=== PATIENT | male | born 1960 | race Caucasian/White ===

== ENCOUNTER 2019-11-29 06:32 | Day surgery (SDC) | payer MEDICAID ==
[~2019-11-29] VITALS: Ht 172.7 cm; Wt 67.1 kg
[2019-11-29] MEDS ORDERED: BUPIVACAINE HCL/PF 0.5% (5MG/ML) 10ML ONE (08:59)
[2019-11-29] MEDS ORDERED: BACITRACIN 50,000 UNITS/VIAL ONE (08:59)
[2019-11-29] MEDS ORDERED: LIDOCAINE HCL 1% 20ML VIAL (Pyxis) INJ ONE (08:59)
[2019-11-29] MEDS: LACTATED RINGERS 1,000 ML IV SCH ×3 (09:50→09:58)
[2019-11-29] MEDS ORDERED: MIRT45TA59 PO (10:19)
[2019-11-29] MEDS ORDERED: GABA300C PO ×2 (10:19)
[2019-11-29] MEDS ORDERED: DIPH50CA38 PO (10:19)
[2019-11-29] MEDS ORDERED: BACL-141 PO (10:19)
[2019-11-29] MEDS ORDERED: NAP5EC PO (10:21)
[2019-11-29] MEDS ORDERED: SKIN ADHESIVE 0.7 GM EA TOP ONE (11:23)
[2019-11-29] MEDS ORDERED: FENTANYL CITRATE/PF 50MCG/ML 2ML VIAL ONE (11:25)
[2019-11-29] MEDS ORDERED: PROPOFOL 200MG/20ML VIAL IV ONE (11:25)
[2019-11-29] MEDS ORDERED: MIDAZOLAM HCL 2 MG/2 ML VIAL ONE ×2 (11:25→11:36)
[2019-11-29] MEDS ORDERED: DEXAMETHASONE 4MG/ML 1ML VIAL ONE (11:29)
[2019-11-29] MEDS ORDERED: ONDANSETRON HCL 4MG/2ML INJ ONE (11:29)
[2019-11-29] MEDS ORDERED: ONDANSETRON HCL 4MG/2ML INJ IV PRN (12:00)
[2019-11-29] MEDS ORDERED: MEPERIDINE HCL/PF 25MG/ML CPJ IV PRN (12:00)
[2019-11-29] MEDS ORDERED: HYDROMORPHONE HCL/PF 2MG/ML CPJ IV PRN (12:00)
[2019-11-29] MEDS ORDERED: LABETALOL 5MG/ML SYR 20 MG/4 ML SYRINGE IV PRN (12:00)
== END 2019-11-29 13:41 | disposition home or self-care (01) ==
LOC: OR 06:32
PROVIDERS: ATTEND Specialist
DX: L72.9 Follicular cyst of the skin and subcutaneous tissue, unspecified (principal); F41.9 Anxiety disorder, unspecified; M47.812 Spondylosis without myelopathy or radiculopathy, cervical region; Z79.899 Other long term (current) drug therapy; Z98.890 Other specified postprocedural states; Z87.891 Personal history of nicotine dependence
CPT/HCPCS: 11402; 88305; J1100; J2250; J2405; J2704; J3010; J3490; 88304